=== PATIENT | male | born 1985 | race Caucasian/White ===

== ENCOUNTER 2021-11-29 17:02 | Emergency (ER) | payer SELFPAY ==
[~2021-11-29] VITALS: Ht 167.6 cm; Wt 59.0 kg
[2021-11-29 17:15] VITALS: BP_SYST 140
--- NOTE | 2021-11-29 17:24 | NUR ---
PATIENT TRIAGED AND BROUGHT TO BED 2
[2021-11-29] MEDS ORDERED: IBUPROFEN 600 MG TABLET PO ONE (17:30)
--- NOTE | 2021-11-29 17:30 | NUR ---
PATIENT TAKEN TO XRAY FOR EXAM
--- NOTE | 2021-11-29 17:40 | NUR ---
PATIENT RETURNED FROM XRAY
[2021-11-29] MEDS ORDERED: IBUP-1969 PO (18:00)
[2021-11-29] MEDS ORDERED: HYDR-3917 PO (18:00)
--- NOTE | 2021-11-29 18:01 | NUR ---
REVIEWED AND EVALUATED XRAY AND SPOKE WITH PATIENT
--- NOTE | 2021-11-29 18:16 | NUR ---
TECH APPLYING SPLINT TO RIGHT HAND / ARM
--- NOTE | 2021-11-29 18:45 | NUR ---
Patient given written and verbal discharge instructions and verbalizes understanding. ER DR TAVERAS discussed with patient the results and treatment provided. Patient in stable condition. ID arm band removed. Rx IBUPROFEN AND NORCO/TYLENOLof given. Patient educated on pain management and to follow up with PMD. Pain Scale . Opportunity for questions provided and answered. Medication side effect fact sheet provided.
[2021-11-29 18:50] VITALS: BP_SYST 166
== END 2021-11-29 18:50 | disposition home or self-care (01) ==
LOC: SED 17:02
DX: S62.326A Displaced fracture of shaft of fifth metacarpal bone, right hand, initial encounter for closed fracture (principal); Z79.899 Other long term (current) drug therapy; X50.9XXA Other and unspecified overexertion or strenuous movements or postures, initial encounter; Y93.89 Activity, other specified; Y92.89 Other specified places as the place of occurrence of the external cause; Y99.8 Other external cause status
CPT/HCPCS: 99283

== ENCOUNTER 2021-12-04 18:51 | Emergency (ER) | payer MEDICAID ==
[~2021-12-04] VITALS: Ht 167.6 cm; Wt 59.0 kg
[~2021-12-04 18:51] MED LIST: HYDR-3917 PO; IBUP-1969 PO
[2021-12-04 19:28] VITALS: BP_SYST 140
[2021-12-04 20:04] VITALS: BP_SYST 147
== END 2021-12-04 20:04 | disposition home or self-care (01) ==
LOC: SED 18:51
DX: S62.306A Unspecified fracture of fifth metacarpal bone, right hand, initial encounter for closed fracture (principal); W23.0XXA Caught, crushed, jammed, or pinched between moving objects, initial encounter; Y93.89 Activity, other specified; Y92.89 Other specified places as the place of occurrence of the external cause; Y99.8 Other external cause status
CPT/HCPCS: 99283

== ENCOUNTER 2022-09-21 17:41 | Emergency (ER) | payer MEDICAID ==
[~2022-09-21] VITALS: Ht 170.2 cm; Wt 72.6 kg
[2022-09-21 17:52] VITALS: BP_SYST 144
[2022-09-21] MEDS ORDERED: IBUP-1969 PO (20:03)
[2022-09-21] MEDS ORDERED: HYDR-3917 PO (20:03)
[2022-09-21 20:19] VITALS: BP_SYST 144
== END 2022-09-21 20:19 | disposition home or self-care (01) ==
LOC: SED 17:41
DX: S63.91XA Sprain of unspecified part of right wrist and hand, initial encounter (principal); Z79.899 Other long term (current) drug therapy; W18.30XA Fall on same level, unspecified, initial encounter; Y93.89 Activity, other specified; Y92.89 Other specified places as the place of occurrence of the external cause; Y99.8 Other external cause status
CPT/HCPCS: 99283